=== PATIENT | female | born 1965 | race Caucasian/White ===

== ENCOUNTER → 2016-12-02 | Outpatient (CLI) | payer BC | END | disposition home or self-care (01) | LOC: C.PAPS 14:42 | PROVIDERS: ATTEND Obstetrics & Gynecology | DX: Z01.419 Encounter for gynecological examination (general) (routine) without abnormal findings (principal) ==

== ENCOUNTER → 2017-01-21 | Outpatient (CLI) | payer BC ==
--- NOTE | 2017-01-21 14:06 | MAMMOGRAPHY REPORT ---
BILATERAL DIGITAL SCREENING MAMMOGRAM TOMOSYNTHESIS WITH CAD: 01/21/2017 CLINICAL HISTORY: Routine screening. Patient has no complaints. TECHNIQUE: Breast tomosynthesis in addition to standard 2D mammography was performed. Current study was also evaluated with a Computer Aided Detection (CAD) system. COMPARISON: Comparison is made to exams dated: 10/16/2014 mammogram, 09/14/2011 mammogram - [facility], and 06/14/2009. BREAST COMPOSITION: The tissue of both breasts is heterogeneously dense, which may obscure small ma sses. FINDINGS: There is a newly visualized oval 7 mm mass with partially circumscribed and partially obs cured margins seen within the right lower inner quadrant, for which ultrasound is recommended for fu rther evaluation. This may represent a cyst. The remainder of both breasts are stable compared to prior exams, without suspicious masses, calcifi cations, or areas of architectural distortion noted. IMPRESSION: ACR BI-RADS CATEGORY 0: INCOMPLETE EVALUATION: NEED ADDITIONAL IMAGING EVALUATION Right breast mass, for which additional imaging evaluation is recommended. The patient will be call ed to schedule an appointment. Approximately 10% of breast cancers are not detected with mammography. A negative mammographic repor t should not delay biopsy if a clinically suggestive mass is present. Jennifer Theodore M.D. ah/:01/21/2017 11:56:31 [employer] Estate Le[employer] Agent: Cora MARTIN)(Yuliana), [facility] letter sent: Addl Imaging 0 BI-RADS Code: ACR BI-RADS Category 0: Incomplete Evaluation: Need Additional Imaging Evaluation
== END | disposition home or self-care (01) ==
LOC: C.MAMM 09:35
PROVIDERS: ATTEND Obstetrics & Gynecology
DX: Z12.31 Encounter for screening mammogram for malignant neoplasm of breast (principal); N63 Unspecified lump in breast

== ENCOUNTER → 2017-01-29 | Outpatient (CLI) | payer BC ==
--- NOTE | 2017-01-29 14:25 | MAMMOGRAPHY REPORT ---
ULTRASOUND OF RIGHT BREAST: 01/29/2017 CLINICAL HISTORY: Callback from screening mammogram for circumscribed 7 mm mass in the right lower in ner quadrant. The patient reports left breast pain for approximately 2 years, which her clinicians a re aware of. COMPARISON: Comparison is made to exams dated: 01/21/2017 mammogram, 10/16/2014 mammogram, 09/14/2011 [facility], and 06/14/2009. TECHNIQUE: Real-time targeted ultrasound of the right breast was performed. FINDINGS: Real-time, high resolution targeted ultrasound was performed of the right lower inner quad rant in the region of the mammographic mass. In the right breast at 3:00 periareolar region, there i s an oval circumscribed anechoic 6 x 6 mm mass. This corresponds with the mammographic mass and is c onsistent with a benign simple cyst. No suspicious solid masses were evident. IMPRESSION: ACR BI-RADS CATEGORY 2: BENIGN Benign 6 mm simple cyst in the right 3:00 breast, which correspond with the mammographic mass. There is no sonographic evidence of malignancy. A 1 year screening mammogram is recommended. Also recomm end continued clinical follow-up for chronic left breast pain. The patient was verbally notified of the results. Jennifer Theodore M.D. ah/:01/29/2017 10:26:28 Attending Technologist: Shawn MELVIN(R)(M), [facility] [employer]: Jennifer Theodore MD, [facility] letter sent: Normal 1/2 BI-RADS Code: ACR BI-RADS Category 2: Benign
== END | disposition home or self-care (01) ==
LOC: C.MAMM 09:18
PROVIDERS: ATTEND Obstetrics & Gynecology
DX: N63 Unspecified lump in breast (principal); N60.01 Solitary cyst of right breast

== ENCOUNTER → 2018-03-21 | Outpatient (CLI) | payer OTHER | END | disposition home or self-care (01) | LOC: C.PAPS 17:37 | PROVIDERS: ATTEND Obstetrics & Gynecology | DX: Z01.419 Encounter for gynecological examination (general) (routine) without abnormal findings (principal) ==